=== PATIENT | male | born 1980 | race Caucasian/White ===

== ENCOUNTER 2023-11-05 17:20 | Emergency (ER) | payer MEDICAID, SELFPAY ==
[2023-11-05 17:37] VITALS: BP 149/104; PULSE 98; RESP 20; TEMP 36.9; O2SAT 98
--- NOTE | 2023-11-05 17:45 | RT.EKG_ITS ---
APPROVED REPORT Exam: Resting ECG Reason for Exam: Back Pain Patient Location: E HR:97 bpm ECG Measurements Heart Rate 97 AXIS WI 176 P 17 QRSd 77 QRS -7 QT 322 T -1 QTc 410 Conclusion Sinus rhythm...normal P axis, V-rate 60- 99 Probable left atrial enlargement...P >50mS, <-0.10mV V1 ST elevation, consider lateral injury...ST >0.10mV, I aVL V5 V6
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
[2023-11-05] MEDS: Lidocaine 5% Patch 1 PATCH TP (18:16)
[2023-11-05] MEDS: ACETAMINOPHEN 1,000 MG/100 ML BTL 400 MG IVPB (18:16)
[2023-11-05] MEDS: Normal Saline 1,000 ML 1000 ML IV (18:16)
[2023-11-05 18:29] LABS: Abs Immature Grans 0.03 10^3/uL (0.0-0.06); Absolute Basophil Count 0.05 10^3/uL (0.0-0.2); Absolute Monocyte Count 0.32 10^3/uL (0.1-0.8); Absolute Neutrophil Count 3.07 10^3/uL (1.2-6.7); HCT 42.9 % (40.0-50.0); HGB 16.1 g/dL (13.5-17.5); Immature Grans % 0.6; Lymphocytes % 26.2; MCH 31.4 pg (27.0-33.0); MCV 84 fL (80-95); Monocytes % 6.4; Neutrophils % 61.8; Platelet Count 160 10^3/uL (130-400); RBC 5.13 10^6/uL (4.36-5.78); RDW 11.5 % (11.8-14.1); RDW-SD 34.5 fL; WBC 4.97 10^3/uL (4.4-10.8)
[2023-11-05 18:30] LABS: MCHC 37.5 % (32.0-36.0)
[2023-11-05 18:32] LABS: ALT 16 U/L (16-63); AST 8 U/L (15-37); Albumin 3.6 g/dL (3.4-5.0); Alkaline Phosphatase 101 U/L (46-116); Anion Gap 10.2 mmol/L (3-11); BUN 9 mg/dL (7-18); Bilirubin, Total 0.5 mg/dL (0.2-1.0); CO2 24.8 mmol/L (21.0-32.0); Calcium 9.3 mg/dL (8.5-10.1); Chloride 102 mmol/L (98-107); Creatine Kinase 29 U/L (39-308); Estimated GFR 95.18 (mL/min/1.73m2); Potassium 3.9 mmol/L (3.5-5.1); Sodium 137 mmol/L (136-145); Total Protein 6.9 g/dL (6.4-8.2)
[2023-11-05 18:33] LABS: Glucose 350 mg/dL (74-106)
[2023-11-05 18:37] LABS: Troponin I < 50 ng/L (< or =60)
[2023-11-05 18:38] LABS: Lithium 0.3 mmol/l (0.6-1.2)
--- NOTE | 2023-11-05 19:00 | DI.RAD_ITS ---
Exam(s) XR LUMBAR SPINE COMPLETE EXAM: XR LUMBAR SPINE COMPLETE CLINICAL HISTORY: Back pain. TECHNIQUE: 2D digital imaging was performed. COMPARISON: No exams were available for comparison FINDINGS: Five views. No evidence of fracture, listhesis, nor pars defects. No disc space narrowing. Concave invagination of inferior endplate of L5 noted without disc space narrowing at this level. Probably an element of Schmorl's node invagination. Bone density normal. No osseous lesions. Facet joints appear un ana rkable. No scoliosis. IMPRESSION: No acute osseous findings in the lumbosacral spinal column. DATA REPOSITORY: RADIATION DOSE DELIVERED:
[2023-11-05 19:08] LABS: Bilirubin Negative (Negative); Blood Negative (Negative); Clarity Clear (Clear); Glucose 500 mg/dL (Negative); Ketones Negative (Negative); Leukocyte Esterase Negative (Negative); Nitrite Negative (Negative); Specific Gravity 1.025 (1.005-1.025); Urobilinogen 0.2 mg/dL (Up to 0.2); pH 6.5 (5-8)
--- NOTE | 2023-11-05 19:52 | DI.VRAD_ITS ---
PROCEDURE INFORMATION: Exam: XR Lumbosacral Spine Exam date and time: 11/05/2023 7:23 PM Age: 43 years old Clinical indication: Low back pain TECHNIQUE: Imaging protocol: Radiologic exam of the lumbosacral spine. Views: 4 or 5 views. COMPARISON: No relevant prior studies available. FINDINGS: Bones/joints: Normal. No acute fracture. Normal alignment. Soft tissues: Unremarkable. IMPRESSION: No acute findings. Dictated and Authenticated by: Ita Wayne MD. Ordering:ERNESTO Resendez MD
[2023-11-05] MEDS: Ketorolac 15 MG/ML VIAL IVP (20:12)
== END 2023-11-05 20:12 | disposition home or self-care (01) ==
PROVIDERS: Emergency Provider Registered Nurse Emergency
DX: M54.50 Low back pain, unspecified (principal); X50.0XXA Overexertion from strenuous movement or load, initial encounter; X08.8XXA Exposure to other specified smoke, fire and flames, initial encounter; Z79.4 Long term (current) use of insulin; E11.9 Type 2 diabetes mellitus without complications
CPT/HCPCS: 36416; 80053; 82550; 82962; 93005; 96374; 96375; 99284; 72110; 80178; 81003; 84484; 85025; 93010; 99283; J0131; J1885

== ENCOUNTER 2024-02-21 16:46 | Emergency (ER) | payer MEDICAID, SELFPAY ==
[2024-02-21 16:58] VITALS: BP 122/101; PULSE 94; RESP 16; TEMP 36.7; O2SAT 98
--- NOTE | 2024-02-21 17:21 | ED.GENADUL_ITS ---
Discharge Plan Disposition Patient Disposition: Home Condition: Stable Discharge Details Clinical Impression: Knee pain, right, Gout flare Primary Care Provider: Unknown,Unknown ED Provider: Mark Mahoney Home Meds and New Rx's Prescriptions: New prednisone 20 mg tablet See Rx Instructions .ROUTE .COMPLEX Qty: 24 0RF Rx Instructions: take 60mg daily for 4 days, then 40 mg daily for 4 days, then 20 mg daily for 4 days Continued metformin 500 mg tablet 500 mg PO ONCE Patient Comments: unsure of dose lithium carbonate 300 mg tablet extended release 300 mg PO BID Patient Comments: unsure of dose lidocaine 5 % adhesive patch,medicated 1 patch topical DAILY Qty: 15 0RF Rx Instructions: leave on most painful area for up to 12 hrs Discharge Instructions Additional Instructions: If not better within a week or improving, follow-up with your primary care provider You can take 1000 mg of Tylenol and 600 mg of ibuprofen every 6 hours as needed If you feel more ill or have new symptoms such as high fevers return to the emergency department for reevaluation HPI General Date/Time Provider Initiated Documentation: 02/21/24 16:50 . Limitations to Documentation: no limitations . Information obtained by: patient . History of Present Illness 43 year old M presents to the emergency department with the chief complaint of right knee pain, described as moderate, and is localized to the right and lower extremity. Patient reports no radiation. Patient started experiencing this day(s) (2) and it has been constant. No relieving factors improve symptom(s), No exacerbating factors reported . Patient notes no other symptoms.; denies fever/chills. Patient did receive the following treatments prior to arrival, none Related Data Home Medications Medication Instructions Recorded Confirmed lidocaine 5 % topical patch 1 patch topical DAILY Back pain 11/05/23 #15 ea lithium carbonate 300 mg 300 mg PO BID 11/05/23 11/05/23 tablet,extended release metformin 500 mg tablet 500 mg PO ONCE 11/05/23 11/05/23 prednisone 20 mg tablet See Rx Instructions .Route 02/21/24 .COMPLEX #24 tabs Previous Rx's Medication Instructions Recorded lidocaine 5 % topical patch 1 patch topical DAILY Back pain 11/05/23 #15 ea prednisone 20 mg tablet See Rx Instructions .Route 02/21/24 .COMPLEX #24 tabs Allergies Allergy/AdvReac Type Severity Reaction Status Date / Time No Known Allergies Allergy Unverified 11/05/23 17:34 General Stated Complaint: GenMedical JONNATHAN: 4 Review of Systems All systems reviewed & are unremarkable except as noted in HPI and below Constitutional Constitutional: Denies chills, Denies fever(s) and Denies weakness Cardiovascular Cardiovascular: Denies chest pain and Denies dyspnea Respiratory Respiratory: Denies cough and Denies dyspnea Gastrointestinal Gastrointestinal: Denies abdominal pain, Denies nausea and Denies vomiting Musculoskeletal Musculoskeletal: Reports joint swelling Integumentary/Breasts Skin/Breast: Denies rash Neurologic Neurologic: Denies weakness Exam Const General: no acute distress Orientation: alert HENMT Head: normal to inspection Ears: external ears normal General nose exam: external nose normal Mouth: moist mucous membranes Eyes General: appearance normal, both eyes and all related structures Neck Neck: normal visual inspection Resp Effort & Inspection: normal respiratory effort and able to speak in complete sentences Cardio Rate: regular rate Skin General skin exam: no rashes or lesions noted Neuro General: patient alert and patient oriented x3 Extrem General: capillary refill normal Psych Mental Status: mental status grossly normal Course Vital Signs Vital signs: Vital Signs Temperature 36.7 C 02/21/24 16:58 Pulse 94 H 02/21/24 16:58 Respiratory Rate 16 02/21/24 16:58 Blood Pressure 122/101 H 02/21/24 16:58 Pulse Oximetry 98 02/21/24 16:58 Temperature 36.7 C 02/21/24 16:58 Temperature Source Tympanic 02/21/24 16:58 Pulse 94 H 02/21/24 16:58 Respiratory Rate 16 02/21/24 16:58 Blood Pressure 122/101 H 02/21/24 16:58 Blood Pressure Position Sitting 02/21/24 16:58 Pulse Oximetry 98 02/21/24 16:58 Oxygen Delivery Method Room Air 02/21/24 16:58 Oxygen Flow Rate 0 02/21/24 16:58 Pain Level 8 02/21/24 16:58 Medical Decision Making 43-year-old male with a history of diabetes, bipolar, and states he has a history of gout which affects his knees usually, comes in with right knee pain for 2 days similar to prior gout flares. Denies any trauma, no fevers, no chills, no redness of the knee. He is alert and speaking clearly on arrival, his right knee is swollen compared to the left, has tenderness and is able to range his knee but does have pain with this. There is no warmth or erythema. Has intact sensation distally as well as pulses are normal in the foot. Given his history suspect gout flare, has no findings on exam to suggest septic joint. Will start him on prednisone as he states he does not usually tolerate colchicine. He will follow-up with his primary care provider and return precautions given Differential Diagnosis Differential Diagnosis: Gout flare, arthritis Quality:SDOH Health Related Social Needs: No Data to Display PFSH All Active Problems (Updated 02/21/24 @ 17:21 by Mark Mahoney MD) Gout flare (Acute) Knee pain, right (Acute) Social History Smoking/Tobacco Use Status: Never Smoking risk assessment performed?: Yes Alcohol Intake: never Substance use type: does not use Do you feel safe at home: Yes Do you feel safe in your relationship?: Yes
[2024-02-21] MEDS: predniSONE 20 MG TAB 60 MG PO (17:33)
== END 2024-02-21 17:41 | disposition home or self-care (01) ==
PROVIDERS: Emergency Provider Emergency Medicine
DX: M10.061 Idiopathic gout, right knee (principal); E11.9 Type 2 diabetes mellitus without complications; F31.9 Bipolar disorder, unspecified; Z79.899 Other long term (current) drug therapy; Z79.84 Long term (current) use of oral hypoglycemic drugs
CPT/HCPCS: 99283; J7512